=== PATIENT | male | born 1950 | race Caucasian/White ===

== ENCOUNTER 2022-11-07 07:31 | Outpatient (REF) | payer MEDICARE, SELFPAY ==
[2022-11-07 13:26] LABS: MANUAL DIFF FLAG NO
[2022-11-07 13:42] LABS: Basophils Percent Auto 1.2 % (0-2); Eosinophils Absolute Auto 0.1 X10*3/uL (0.0-0.4); Eosinophils Percent Auto 3.6 % (0-4); Hematocrit 40.6 % (42.0-52.0); Hemoglobin 12.9 g/dl (14.0-18.0); Imm Gran Abs Auto 0.01 X10*3/uL (0.00-0.03); Imm Gran Pct Auto 0.3 % (0.0-0.4); Lymphocytes Absolute Auto 1.2 X10*3/uL (1.2-4.9); Lymphocytes Percent Auto 34.2 % (20-40); Mean Corpuscular HGB Conc 31.8 g/dl (31.0-36.0); Mean Corpuscular Hemoglobin 29.5 pg (27.0-33.0); Mean Corpuscular Volume 92.7 fL (80.0-98.0); Mean Platelet Volume 9.6 fL (9.4-12.4); Monocytes Absolute Auto 0.5 X10*3/uL (0.1-1.2); Monocytes Percent Auto 14.6 % (2-11); Neutrophils Absolute Auto 1.6 x10*3/uL (2.0-8.3); Neutrophils Percent Auto 46.1 % (45-73); Platelet Count 314 X10*3/uL (160-400); Red Blood Count 4.38 X10*6/uL (4.60-5.80); Red Cell Distribution Width 16.1 % (11.0-16.0); White Blood Count 3.4 X10*3/uL (4.8-10.8)
[2022-11-07 14:31] LABS: Alanine Aminotransferase 23 U/L (0-40); Alkaline Phosphatase 77 U/L (39-117); Anion Gap 11 (12-20); Aspartate Amino Transferase 22 U/L (5-37); Bilirubin Total 0.3 mg/dL (0.0-1.0); Blood Urea Nitrogen 15 mg/dL (9-16); Calcium 9.7 mg/dL (8.4-10.2); Carbon Dioxide 28 mmol/L (22-29); Chloride 109 mmol/L (96-108); Cholesterol 233 mg/dL (<200); Estimated Glomerular Filt Rate > 60; Glucose Random 97 mg/dL (60-115); HDL Cholesterol 59 mg/dL (>40); LDL Cholesterol Calculated 152 mg/dL (<100); Potassium 4.1 mmol/L (3.3-5.1); Sodium 144 mmol/L (135-145); Triglycerides 113 mg/dL (<150)
[2022-11-07 14:34] LABS: Prostate Specific Antigen 4.57 ng/mL (<0.05-4.0)
== END 2022-11-07 07:32 | disposition home or self-care (01) ==
LOC: HO.MANLDS 07:31
PROVIDERS: Visit Provider Internal Medicine
DX: Z12.5 Encounter for screening for malignant neoplasm of prostate (principal); I10 Essential (primary) hypertension
CPT/HCPCS: 36415; 80053; 80061; 84153; 85025

== ENCOUNTER 2022-11-23 08:04 | Outpatient (REF) | payer MEDICARE, SELFPAY ==
[2022-11-23 13:32] LABS: MANUAL DIFF FLAG NO
[2022-11-23 13:49] LABS: Basophils Percent Auto 0.8 % (0-2); Eosinophils Absolute Auto 0.1 X10*3/uL (0.0-0.4); Hemoglobin 13.5 g/dl (14.0-18.0); Imm Gran Abs Auto 0.02 X10*3/uL (0.00-0.03); Imm Gran Pct Auto 0.4 % (0.0-0.4); Lymphocytes Absolute Auto 1.1 X10*3/uL (1.2-4.9); Lymphocytes Percent Auto 22.8 % (20-40); Mean Corpuscular HGB Conc 31.4 g/dl (31.0-36.0); Mean Corpuscular Hemoglobin 29.4 pg (27.0-33.0); Mean Corpuscular Volume 93.7 fL (80.0-98.0); Mean Platelet Volume 9.8 fL (9.4-12.4); Monocytes Absolute Auto 0.6 X10*3/uL (0.1-1.2); Monocytes Percent Auto 11.6 % (2-11); Neutrophils Absolute Auto 3.1 x10*3/uL (2.0-8.3); Neutrophils Percent Auto 62.4 % (45-73); Platelet Count 342 X10*3/uL (160-400); Red Blood Count 4.59 X10*6/uL (4.60-5.80); Red Cell Distribution Width 15.9 % (11.0-16.0)
[2022-11-23 14:25] LABS: Prostate Specific Antigen 5.58 ng/mL (<0.05-4.0)
[2022-11-23 14:39] LABS: Folate 15.5 ng/mL (> or = 4.0); Vitamin B12 745 pg/mL (200-900)
[2022-11-23 14:40] LABS: Ferritin 18 ng/mL (20-250); Iron 61 mcg/dL (45-160); Percent Iron Saturation 15 % (15-50); Total Iron Binding Capacity 400 mcg/dL (228-428); Unsaturated Iron Binding 339 ug/dL; Vitamin D 25-OH Total 35.4 ng/mL (>30)
== END 2022-11-23 08:05 | disposition home or self-care (01) ==
LOC: HO.MANLDS 08:04
PROVIDERS: Visit Provider Internal Medicine
DX: D64.9 Anemia, unspecified (principal); Z11.3 Encounter for screening for infections with a predominantly sexual mode of transmission; Z12.5 Encounter for screening for malignant neoplasm of prostate
CPT/HCPCS: 36415; 82306; 82607; 82728; 82746; 83540; 84153; 85025

== ENCOUNTER 2024-04-22 07:48 | Outpatient (REF) | payer MEDICARE, SELFPAY ==
--- OUTSIDE RECORDS SUMMARY | 2024-04-22 07:52 | XMS_ITS | Data Portability ---
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) [facility] MODERATE MUST MEET 2 OUT OF 3 ELEMENTS: PROBLEMS, DATA OR RISK ELEMENT 1: PROBLEMS ADDRESSED 1 OR MORE CHRONIC ILLNESS WITH EXACERBATION OR 2 OR MORE STABLE CHRONIC ILLNESSES OR 1 UNDIAGNOSED NEW PROBLEM OR 1 ACUTE ILLNESS W/SYMPTOMS OR 1 ACUTE COMPLICATED INJURY ELEMENT 2: DATA MUST MEET 1 OF 3 CATEGORIES CATEGORY 1: REVIEW OF PRIOR EXTERNAL NOTES, REVIEW OF RESULTS, ORDERING OF EACH TEST, ASSESSMENT REQUIRING INDEPENDENT HISTORIAN OR CATEGORY 2: INDEPENDENT INTERPRETATION OF TESTS BY ANOTHER PHYSICIAN OR SPECIALIST OR CATEGORY 3: DISCUSSION OF MGT OR TEST INTERPRETATION W/EXTERNAL PHYSICIAN OR SPECIALIST ELEMENT 3: RISK RISK OF COMPLICATIONS AND/OR MORBIDITY OR MORTALITY OF PATIENT MANAGEMENT PROVIDER MUST THOROUGHLY DOCUMENT EACH ELEMENT THAT IS COVERED Not available 06/14/2021 09:49:45 12/22/2021 12/22/2021 [id number] [place] [id number]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) [facility] MODERATE MUST MEET 2 OUT OF 3 ELEMENTS: PROBLEMS, DATA OR RISK ELEMENT 1: PROBLEMS ADDRESSED 1 OR MORE CHRONIC ILLNESS WITH EXACERBATION OR 2 OR MORE STABLE CHRONIC ILLNESSES OR 1 UNDIAGNOSED NEW PROBLEM OR 1 ACUTE ILLNESS W/SYMPTOMS OR 1 ACUTE COMPLICATED INJURY ELEMENT 2: DATA MUST MEET 1 OF 3 CATEGORIES CATEGORY 1: REVIEW OF PRIOR EXTERNAL NOTES, REVIEW OF RESULTS, ORDERING OF EACH TEST, ASSESSMENT REQUIRING INDEPENDENT HISTORIAN OR CATEGORY 2: INDEPENDENT INTERPRETATION OF TESTS BY ANOTHER PHYSICIAN OR SPECIALIST OR CATEGORY 3: DISCUSSION OF MGT OR TEST INTERPRETATION W/EXTERNAL PHYSICIAN OR SPECIALIST ELEMENT 3: RISK RISK OF COMPLICATIONS AND/OR MORBIDITY OR MORTALITY OF PATIENT MANAGEMENT PROVIDER MUST THOROUGHLY DOCUMENT EACH ELEMENT THAT IS COVERED Not available 12/22/2021 09:48:26 07/27/2022 07/27/2022 [id number] [place] [id number]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) [facility] MODERATE MUST MEET 2 OUT OF 3 ELEMENTS: PROBLEMS, DATA OR RISK ELEMENT 1: PROBLEMS ADDRESSED 1 OR MORE CHRONIC ILLNESS WITH EXACERBATION OR 2 OR MORE STABLE CHRONIC ILLNESSES OR 1 UNDIAGNOSED NEW PROBLEM OR 1 ACUTE ILLNESS W/SYMPTOMS OR 1 ACUTE COMPLICATED INJURY ELEMENT 2: DATA MUST MEET 1 OF 3 CATEGORIES CATEGORY 1: REVIEW OF PRIOR EXTERNAL NOTES, REVIEW OF RESULTS, ORDERING OF EACH TEST, ASSESSMENT REQUIRING INDEPENDENT HISTORIAN OR CATEGORY 2: INDEPENDENT INTERPRETATION OF TESTS BY ANOTHER PHYSICIAN OR SPECIALIST OR CATEGORY 3: DISCUSSION OF MGT OR TEST INTERPRETATION W/EXTERNAL PHYSICIAN OR SPECIALIST ELEMENT 3: RISK RISK OF COMPLICATIONS AND/OR MORBIDITY OR MORTALITY OF PATIENT MANAGEMENT PROVIDER MUST THOROUGHLY DOCUMENT EACH ELEMENT THAT IS COVERED Not available 07/27/2022 12:44:29 01/25/2023 01/25/2023 [id number] [place] [id number]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 REVIEW OF PRIOR EXTERNAL NOTES/RESULTS, ORDERING OF TEST(S) CATEGORY 2. ASSESSMENT REQUIRING INDEPENDENT HISTORIAN(S) INCLUDE WHO THE HISTORIAN IS AND RELATION TO PT AND WHY PT IS UNABLE TO GIVE COMPLETE HISTORY ELEMENT 3: RISK (LOW) RISK OF COMPLICATIONS AND/OR MORBIDITY OR MORTALITY OF PATIENT MANAGEMENT PROVIDER MUST THOROUGHLY DOCUMENT ALL OF THE ELEMENTS COVERED Not available 01/25/2023 11:39:50 04/20/2024 04/20/2024 mwv Not available 04/11 13:43:31 Plan of Treatment Reminders Order Date Submit Date Provider Last Modified By Organization Details Last Modified Time Details Appointments None recorded. Lab CMP, serum or plasma 2022 023 [facility] [place], [address], 11:46:39 PSA, serum or plasma 2022 023 [facility], [place], [address], 3 11:46:39 lipid panel, blood 2022 023 [facility], [place], [address], 3 11:46:39 CBC 2022 023 [facility], [place], [address], 3 11:46:39 CMP, serum or plasma 2024 025 [facility], [place], [address], 5 13:46:22 PSA, serum or plasma 2024 025 [facility], [place], [address], 5 13:46:22 lipid panel, blood 2024 025 [facility], [place], [address], 5 13:46:22 CBC w/ auto diff 2024 025 [facility], [place], [address], 5 13:46:23 ferritin, serum or plasma 2024 025 [facility], [place], [address], 5 13:46:22 vitamin B12, serum 2024 025 [facility], [place], [address], 5 13:46:23 Referral None recorded. Procedures None recorded. Surgeries None recorded. Imaging CT, head, w/o contrast 2024 025 [facility], [address] [place], [address], 10:14:17 Medication Orders albuterol sulfate HFA 90 mcg/actuat ion aerosol inhaler 2021 022 [facility] [id number], [address], [place], [id number], 09:52:02 Patient TargetsNo targets recorded. Patient Instructions Encounter Date Encounter Id Patient Instructions Last Modified By Organization Details Last Modified Time 06/14/2021 [id number] pulse oximetry* KEISHA Not available 06/14/2021 11:10:09 high blood pressure: care instructions Not available 06/14/2021 09:53:33 learning about high blood pressure Not available 06/14/2021 09:53:33 12/22/2021 [id number] high blood pressure: care instructions Not available 12/22/2021 09:51:27 learning about high blood pressure Not available 12/22/2021 09:51:27 07/27/2022 [id number] pulse oximetry* KEISHA Not available 07/27/2022 12:27:37 controlling your asthma: care instructions rtryba Not available 07/27/2022 12:14:59 learning about asthma rtryba Not available 07/27/2022 12:14:59 04/20/2024 [id number] learning about asthma Not available 04/20/2024 13:44:58 pulse oximetry* Not available 04/20/2024 13:44:58 high blood pressure: care instructions Not available 04/20/2024 13:44:58 learning about high blood pressure Not available 04/20/2024 13:44:58 anemia: care instructions Not available 04/20/2024 13:44:58 Reason for Referral None Reported. Results Created Date Observation Date Name Description Value Unit Range Abnormal Flag Note LastModifiedBy Organization Detail LastModifiedTime 07/28/19 23 07/27/2022 pulse oxime try* Result 98 Not Available [facility] [address] [facility], [place], [address], 07/24/2022 11:43:12 04/20/19 25 04/20/2024 pulse oxime try* Result 98 Not Available [facility] [address] [facility] [address], [place], [address], 04/15/2024 14:01:35 Result Notes None recorded. 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 353047818 Active 2018 Not Available [facility] 13:58:29 Exercise- induced asthma 61592140 Active 2018 Not Available [facility] 13:58:29 Stress 53025121 Active 2019 Not Available [facility] 13:58:29 Family history of Hypertens ion 273197607 Active 2021 Sina Robertson, [address] [facility], [place], [address], [facility] 2 09:42:38 Viral hepatitis C 91545948 Active 2017 Not Available [facility] 13:58:29 Type B viral hepatitis 74371325 Active 2017 Not Available [facility] 13:58:29 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 92644969 Active 2017 Not Available [facility] 13:58:29 History of tobacco use 605923384031 3 Active 2017 Not Available [facility] 13:58:29 Exposure to asbestos Active 2017 Not Available [facility] 13:58:29 Essential hypertens ion 48372109 Active 2017 Not Available [facility] 10/05/202 1 13:58:29 Anxiety 87170741 Active 2021 JEAN-PIERRE SAENZ [address] [place], [address], [facility] Internal [facility] 2 08:45:19 Asthma 394257836 Active 2022 Sina Robertson, DO [address] [place] [address], [address], [facility] 3 12:45:36 Impacted cerumen 75316045 Active 2022 Sina Robertson, DO [address] [place] [address], [address], [facility] 3 12:45:57 Impacted cerumen 81026278 Active 2022 Sina Robertson DO [address] [place] [address], [address], [facility] 3 12:46:03 Altered bowel function 82565924 Active 2022 Sina Robertson, DO [address] [place] [address], [address], [facility] 3 12:49:09 Anemia 935042765 Active 2022 Sina Robertson DO [address] [place] [address], [address], [facility] 3 16:32:02 Chronic post-trau matic headache 882327264 Active 2024 Sina Robertson, DO [address] [place] [address], [address], [facility] 5 13:46:59 Problem Notes None recorded. Medical Equipment None Reported. Allergies Allergen ID Allergen Name Allergen Category Reaction Reaction Severity Criticality Documentation Date Start Date Code Code System Note Provider Name and Address Organization Details Recorded Time 588 pantopraz ole medicatio n Not available Not available Not available 05/29/2017 55948 [facility] 10:11:42 Medications Name Sig Start Date Stop Date Status Note LastModified by Organization Details LastModified Time amlodipine besylate 10 mg tabs active Not Available Not Available Not Available citalopram hydrobromid e 10 mg tabs active Not Available Not Available Not Available prednisone 10 mg tablet Take 4 tablets every day by oral route for 10 days. 05/19 completed Not Available Not Available Not Available ofloxacin 0.3 % eye drops INSTILL 1 DROP IN LEFT EYE FOUR TIMES DAILY 06/14 completed Not Available Not Available Not Available citalopram 10 mg tablet TAKE 1 TABLET BY MOUTH ONCE DAILY active Not Available Not Available No t Available amlodipine 5 mg tablet Take 1 tablet every day by oral route. 11/05 completed Not Available Not Available Not Available tamsulosin 0.4 mg capsule Take 1 capsule every day by oral route for 30 days. 04/03 completed Not Available Not Available Not Available amlodipine 10 mg tablet TAKE 1 TABLET BY MOUTH ONCE DAILY active Not Available Not Available No t Available albuterol sulfate HFA 90 mcg/actuati on aerosol inhaler INHALE 2 PUFFS BY MOUTH EVERY 4 HOURS active Not Available Not Available No t Available ketoconazol e 2 % topical cream APPLY TO THE AFFECTED AREA(S) BY TOPICAL ROUTE ONCE DAILY 04/25 completed Not Available Not Available Not Available Pneumovax-2 3 25 mcg/0.5 mL injection syringe 11/10 completed Not Available Not Available Not Available duloxetine 30 mg capsule,del ayed release TAKE 1 CAPSULE BY MOUTH EVERY DAY 11/15 completed Not Available Not Available Not Available Boostrix Tdap 2.5 Lf unit-8 mcg-5 Lf/0.5 mL intramuscul ar syringe 11/10 completed Not Available Not Available Not Available Prevnar 13 (PF) 0.5 mL intramuscul ar syringe 11/10 completed Not Available Not Available Not Available Shingrix (PF) 50 mcg/0.5 mL intramuscul ar suspension, kit 11/10 completed Not Available Not Available Not Available Fluad 2018- 65yr up(PF)45 mcg(15 mcgx3)/0.5 mL intramuscul ar syringe 11/10 completed Not Available Not Available Not Available Vitals Date Recorded Body height Body mass index (BMI) Body weight Heart rate Oxygen saturation Oxygen saturation in Arterial blood by Pulse oximetry Systolic blood pressure Diastolic blood pressure Provider Name and Address Organization Details Last Updated DateTime 2 174.63 cm 29.2 kg/m2 83022.5 4 g 60 /min 98 % 98 % 140 mm[Hg] 76 mm[Hg] Sina Robertson, DO [address] [place], [address], [facility] 2 09:29:33 Date Recorded Body height Body mass index (BMI) Body weight Heart rate Oxygen saturation Oxygen saturation in Arterial blood by Pulse oximetry Systolic blood pressure Diastolic blood pressure Provider Name and Address Organization Details Last Updated DateTime 2 174.63 cm 29.4 kg/m2 37030.2 1 g 64 /min 98 % 98 % 142 mm[Hg] 84 mm[Hg] Christine Ceciliawill [facility] 2 09:28:55 Date Recorded Body height Body mass index (BMI) Body weight Heart rate Oxygen saturation Oxygen saturation in Arterial blood by Pulse oximetry Systolic blood pressure Diastolic blood pressure Provider Name and Address Organization Details Last Updated DateTime 3 177.8 cm 27.4 kg/m2 94504.1 4 g 98 /min 72 % 72 % 120 mm[Hg] 80 mm[Hg] Nini Gaviria [facility] 3 12:20:51 Date Recorded Body height Body mass index (BMI) Body weight Heart rate Oxygen saturation Oxygen saturation in Arterial blood by Pulse oximetry Systolic blood pressure Diastolic blood pressure Provider Name and Address Organization Details Last Updated DateTime 5 177.8 cm 29.7 kg/m2 96081.6 2 g 62 /min 98 % 98 % 138 mm[Hg] 80 mm[Hg] Rodolfo Freeman [facility] 5 13:29:18 Social History Question Answer Notes LastModified by Organizat ion Details LastModified Time Tobacco Smoking Status Former Smoker 35 years Not Available [facility] 01/12/2020 03:36:24 What Is Your Level Of Alcohol Consumption? Occasional [id number] Information not available 01/12/2020 Are You Blind Or Do You Have Difficulty Seeing? No [id number] Information not available 01/12/2020 What Is Your Level Of Caffeine Consumption? Moderate [id number] Information not available 01/12/2020 How Much Tobacco Do You Chew? None [id number] Information not available 01/12/2020 Are You Currently Employed? No [id number] Information not available 01/12/2020 Are You Deaf Or Do You Have Serious Difficulty Hearing? No [id number] Information not available 01/12/2020 What Type Of Diet Are You Following? VEGETARIAN [id number] Information not available 01/12/2020 What Was The Date Of Your Most Recent Tobacco Screening? 07/27/2022 [email or web address] Information not available 01/25/2023 Do You Or Have You Ever Used Any Other Forms Of Tobacco Or Nicotine? No [email or web address] Information not available 01/25/2023 Sex: Unknown Functional Status Question Answer Note LastModified by Organization D etails LastModified Time Are you able to care for yourself? Yes [id number] Information n ot available 01/12/2020 Mental Status None recorded. Family History Nothing Reported. Medical History Condition Response Coronary Artery Disease N Other N Gout N Blood Diseases N Kidney Stones N Breast Cancer N Blood Transfusion N Lung Disease N Depression N COPD N Defects or Inherited Disease N Anxiety Disorder N Muscle, Joint, or Bone Problems N Obesity N Vision or Eye Problems N Arthritis N Infertility N Polyps N Mental Disorder N Cancer N Stroke N Varicosities N Endometriosis N Bladder or Kidney Problems N High Cholesterol N Liver Disease N Fibromyalgia N Headaches N Kidney Disease N Allergies/Hayfever N Heart Problems N Hospitalizations N Thyroid Problems N GI Problems N Eating Disorder N Skin Problems N Anemia N MRSA exposure N Constipation N Mental Illness N Diabetes N Ovarian Cancer N Seizures/Epilepsy N Tuberculosis N Congestive Heart Failure (CHF) N Eczema N Abuse/Domestic Violence N Diverticulitis N Asthma N Reflux/GERD N Hepatitis N Heart Disease N Pulmonary Embolism N Hypertension N Chicken Pox N Autism Spectrum Disorder (ASD) N Osteoporosis N Immunizations Vaccine Type Date Status Note Provider Nam e and Address Organization Details Recorded Time COVID-19, mRNA, LNP-S, PF, 30 mcg/0.3 mL dose 06/03/19 21 completed Liliam GenNAVIN [facility] 07/27/2022 12:09:41 Influenza, split virus, quadrivalent, preservative 12/14/19 21 completed [facility] 12:09:40 COVID-19, mRNA, LNP-S, PF, 100 mcg/0.5mL dose or 50 mcg/0.25mL dose 01/04/20 21 completed Liliam Gencarelle null, [facility] 07/27/2022 12:09:41 COVID-19, mRNA, LNP-S, PF, 100 mcg/0.5mL dose or 50 mcg/0.25mL dose 07/06/19 22 completed [facility] 07/27/2022 12:09:41 Influenza, high-dose, quadrivalent, PF 12/17/19 22 completed [facility] 07/27/2022 12:09:40 COVID-19, mRNA, LNP-S, PF, 30 mcg/0.3 mL dose 12/17/19 22 completed Liliam Gencarelle [facility] 07/27/2022 12:09:41 influenza, unspecified formulation 12/04/19 23 completed Rashaad Robertson [facility] 12/03/2022 10:30:22 Influenza, [place] 11/17/19 24 completed Sina Robertson [address], [address], [facility] 11/17/2023 16:50:48 SARS-COV-2 (COVID-19) vaccine, UNSPECIFIED 11/17/19 24 completed Sina Robertson DO [address] [place] [address], [address], [facility] 11/17/2023 16:51:49 Influenza, split virus, quadrivalent, preservative 12/24/19 18 completed [facility] 07/27/2022 12:09:40 Tdap 09/26/19 19 completed [facility] 09/26/2018 08:18:28 Pneumococcal conjugate PCV 13 09/26/19 19 completed Liliam Mcduffiecarelle [facility] 07/27/2022 12:09:41 Influenza, split virus, quadrivalent, preservative 11/29/19 19 completed Liliam Gencarelle null, [facility] 07/27/2022 12:09:40 pneumococcal polysaccharide PPV23 10/15/19 20 completed Liliam Gencarelle null, [facility] 07/27/2022 12:09:41 zoster recombinant 10/15/19 20 completed Liliam Gencarelle null, [facility] 07/27/2022 12:09:40 Influenza, split virus, quadrivalent, preservative 12/21/19 20 completed Liliam Gencarelle null, [facility] 07/27/2022 12:09:40 zoster, unspecified formulation 12/21/19 20 completed Liliam Gencarelle null, [facility] 07/27/2022 12:09:40 COVID-19, mRNA, LNP-S, PF, 100 mcg/0.5mL dose or 50 mcg/0.25mL dose 05/05/19 21 completed Liliam Gencarelle null, [facility] 07/27/2022 12:09:41 Past Encounters Encounter ID Performer Location Encounter Start Date Encounter Closed Date Diagnosis/Indication Diagnosis SNOMED-CT Code Diagnosis ICD10 Code Diagnosis Note [id number] Sina Robertson DO [facility] [address] [place] [address],[place] [address] 09/23/2017 15:25:09 09/23/2017 16:37:32 Essential hypertension 01792955 I10 doing well great bp still biking thinking on retiring soon Degenerati on of thoracic intervertebral disc 61389798 M51.34 back is stable for most part but with any lifting has signif discomfort can anticipate it [id number] Nadege Matthew NP, S [facility] [address] [place] [address],[place] [address] 11/05/2017 15:54:28 11/06/2017 08:56:21 Thyroid nodule 488000653 E04.1 Fatigue 44946962 R53.83 Essential hypertension 06155967 I10 stable [id number] Sina Robertson DO [facility] [address] [facility] [address] [address] 03/26/2018 09:17:32 03/26/2018 09:59:55 Essential hypertension 55766817 I10 doing well bp sl elevated but great at home 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 left clavicle snowboardi ng but this is healing Generalize d skin eruption caused by drug and medicament 576659272 L27.0 prob secondary to new amlodipine he will stop this and we will give him pred taper [id number] Sina Robertson [facility] [address] [facility] [address] 05/05/2018 12:07:02 05/05/2018 12:33:58 Generalized skin eruption caused by drug and medicament 821321508 L27.0 marked improvemen t and all but resolved will see what happens off the pred in meantime molly keep him off the bp med (amlodipin e) and will see how his bp stays Essential hypertension 48051832 I10 as above cont to hold amlodipine and pt will check his bp multiple times during week will rechk in 1-2 mo [id number] Nadege Matthew NP, S [facility] [address] [facility],[place] [address] 05/19/2018 15:38:43 05/20/2018 08:25:38 Pruritic rash 01034360 L28.2 [id number] Sina Robertson [facility] [address] [facility] [address] [address] 06/04/2018 13:31:26 06/04/2018 15:53:46 Essential hypertension 66858695 I10 as above cont to hold amlodipine and pt will check his bp multiple times during week will rechk in 1-2 mo Pruritic rash 99173005 L 28.2 diffuse and only partly responsive to pred present since february and not improving see photos included Exercise-i nduced asthma 96229851 J45.990 has noticed onset agian this spring [id number] Sina Robertson [facility] [address] [facility],[place] [address] 09/24/2018 08:49:10 09/24/2018 13:39:41 Essential hypertension 13839519 I10 bp has been stable and is doing well denies any issues with med Exercise-i nduced asthma 54372647 J45.990 has been more stable since the spring not req to use inhaler Benign pro static hyperplasia 015383689 N40.1 [id number] Sina Robertson [facility] [address] [facility],[place] [address] 04/03/2019 14:48:31 04/03/2019 15:16:20 Essential hypertension 96181959 I10 bp has been stable and is doing well denies any issues with med Stress 56542050 Z73.3 anxiety is high and this contribute s to him feeling well [id number] Sina Robertson DO [facility] [address] [facility],[place] [address] 05/08/2019 14:38:23 05/08/2019 15:12:34 Essential hypertension 27593451 I10 bp has been stable and is doing well denies any issues with med Active or passive immunization 270537199 Z23 Exercise-i nduced asthma 85060638 J45.990 has been more stable since the spring not req to use inhaler [id number] Sina Robertson [facility] [address] [facility],[place] [address] 11/11/2019 13:27:26 11/11/2019 15:28:24 Essential hypertension 55369152 I10 bp has been stable and is doing well denies any issues with med feeling well and we will cont to use this same regimen Exercise-i nduced asthma 12769032 J45.990 has been more stable since the spring not req to use inhaler Degenerati on of thoracic intervertebral disc 84104344 M51.34 back is stable for most part but with any lifting has signif discomfort can anticipate it Drug of abuse screen 897 83808 Z02.83 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 [id number] Sina Robertson [facility] [address] [facility],[place] [address] 05/11/2020 09:09:52 05/11/2020 10:41:52 Essential hypertension 93874760 I10 bp has been stable and is doing well denies any issues with med feeling well and we will cont to use this same regimen Exercise-i nduced asthma 57463443 J45.990 has been more stable since the spring not req to use inhaler Exposure to asbestos 699 951745 Z77.090 here for chk will have him get another cxr [id number] Sina [facility] Internal Medicine [address] [facility],[place] [address] 09/30/2020 14:46:45 09/30/2020 15:35:20 Essential hypertension 06157984 I10 bp has been stable and is doing well denies any issues with med feeling well and we will cont to use this same regimen Stress 84494743 Z73.3 anxiety is high and this contribute s to him feeling well we will stop the citalopram and try duloxetine [id number] Sina Robertson [facility] Internal Medicine [address] [facility],[place] [address] 06/14/2021 09:21:46 06/14/2021 11:15:12 Essential hypertension 37027593 I10 bp has been stable and is doing well denies any issues with med feeling well and we will cont to use this same regimen he is having dry mouth so he will hold the amlodipine for several days and see if this is the culprit and if so will call me on saturday we will consider change to alternativ e Exercise-i nduced asthma 70598394 J45.990 has been more stable since the spring not req to use inhaler Stress 10743503 Z73.3 doing ok we will cont the citalopram [id number] Sina Robertson [facility] Internal Medicine [address] [facility],[place] [address] 12/22/2021 09:23:31 12/22/2021 11:18:29 Essential hypertension 46291686 I10 bp has been stable and is doing well denies any issues with med feeling well and we will cont to use this same regimen he is having dry mouth so he will hold the amlodipine for several days and see if this is the culprit and if so will call me on saturday we will consider change to alternativ e Stress 75195090 Z73.3 doing ok we will cont the citalopram Degenerati on of thoracic intervertebral disc 85327319 M51.34 back is stable for most part but with any lifting has signif discomfort can anticipate it Exercise-i nduced asthma 71161384 J45.990 has been more stable since the spring not req to use inhaler [id number] Sina Castle Ailyn [facility] Internal Medicine [address] [facility] [place] [place] 7 07/27/2022 12:09:32 07/27/2022 13:59:33 Asthma 767293841 J45.909 relates he is rarely bothered by the asthma not using inhaler at all Essential hypertension 37322872 I10 and again: bp has been stable and is doing well denies any issues with med feeling well and we will cont to use this same regimen Impacted cerumen 7716080 6 H61.21 he will irrigate th ear and let me know not compldtely blocked so we will cont to follow if not improved he will need an audiogram Altered pedro wel function 90566554 R19.4 we will follow if it recurs pt will let us know [id number] Sina Jadejorge alberto [facility] Internal Medicine [address] [facility], [address] [facility] [place] 7 01/25/2023 08:20:46 01/25/2023 14:26:08 Asthma 836279821 J45.909 relates he is rarely bothered by the asthma not using inhaler at all Essential hypertension 45884511 I10 and again: bp has been stable and is doing well denies any issues with med feeling well and we will cont to use this same regimen Anemia 350141706 D64.9 [id number] Sina Robertson DO [facility] Internal Medicine [address] [facility] [address],[place] [address] 04/20/2024 13:19:04 04/20/2024 13:52:49 Asthma 624716413 J45.909 relates he is rarely bothered by the asthma not using inhaler at all Anxiety 65201417 F41.1 stable but maybe a panic attack Anemia 152171569 D64.9 will need cbc Essential hypertension 17448971 I10 and again: bp has been stable and is doing well denies any issues with med feeling well and we will cont to use this same regimen Chronic post-traumatic headache 684907114 G44.329 Health Concerns Section Related Observation LastModified by Organization Detai ls LastModified Time None Recorded Concern Status LastModified by Organization Details LastModified Time None Recorded Advance Directives Directive None Recorded Payers Encounter Date Sequence Insurance Name Policy Number Policy Peters Covered Member ID Peters Member ID Guarantor Name 06/14/2021 1 [facility]UE (MEDICARE REPLACEMENT PPO) [id number] Sixto A Cernak [id number] Sixto Cernak 12/22/2021 1 [facility] (MEDICARE REPLACEMENT PPO) [id number] Sixto A Cernak [id number] Sixto Cernak 07/27/2022 1 [facility] (MEDICARE REPLACEMENT PPO) [id number] Sixto A Cernak [id number] 90 Sixto Cernak 01/25/2023 1 [facility] (MEDICARE REPLACEMENT PPO) [id number] Sixto A Cernak [id number] 90 Sixto Cernak 04/20/2024 1 [facility]UE (MEDICARE REPLACEMENT PPO) [id number] Sixto A Cernak [id number] Sixto Cernak Notes Date Note Type Note Provider Name and Address Organization Details Recorded Time 2 text/htm l Hypertension F/UReported bypatient.Medications:marlyn lomeli medications as directed; no side effects from medication Lifestyle:regular exercise; limiting/avoiding salt; compliant with low salt diet Associated Symptoms:no dizziness; no lightheadedness; no chest pain; no shortness of breath; no palpitations; no edema; no calf pain with exertion; no headacheNotes:The patient denies little pleasure in doing thing or things the find enjoyable, feeling depressed, difficulties sleeping, feeling tired or having little energy, change in appetite, feeling guilty, overwhelmed or unmotivated. The patient denies suicidal ideation, thoughts of hurting themselves or others. Their mood is appropriate, they show good judgement and clear understanding of the conversation. They are orientated to time, place and person. They are not expressing any concerning thoughts or actions that would need further investigation and treatment for mental health. here for catiand is doing okstates no major issues except for dry mouthrelates he stopped the citalopram on saturday but did not have any issue Sina Robertson DO [address] [place] [address], [phone], [facility] Internal Medicine 06/14/2021 09:53:57 2 text/htm l Hypertension F/UReported bypatient.Medications:marlyn lomeli medications as directed; no side effects from medication Lifestyle:regular exercise; limiting/avoiding salt; compliant with low salt diet Associated Symptoms:no dizziness; no lightheadedness; no chest pain; no shortness of breath; no palpitations; no edema; no calf pain with exertion; no headache here for rechk and is still very avtive biking every daystates feels goodno major prob no cp nosobnot using inhaler Sina Robertson DO [address] [place], [address], [facility] Internal Medicine 12/22/2021 09:52:25 3 text/htm l relates he is feeling wellstates that he has been having some decreased hearing in right ear over the last monthsalso had very light bm several months ago happened for about a week then has cleared Sina Robertson DO [address] [place], [address], [facility] Internal Medicine 07/27/2022 12:50:10 3 text/htm l patient is evaluated via tele/video assessment per patient consent during current pandemicPatient is a _72_ year old {{male* female}} with a history of hypertension. Patient had been stable on medication until recently. Patient returns today for further evaluation. Patient denies lightheadedness or dizziness. doing wellfeels welldid get the rsv and flu Sina Robertson DO [address] [place] [address], [phone], [facility] Internal Medicine 01/25/2023 11:40:08 3 text/htm l Care Management - HypertensionReported bypatient.Self Care:not under emotional stress Severity:symptoms are improving; does not interfere with daily activities Associated Symptoms:no dizziness; no lightheadedness; no chest pain; no shortness of breath; no palpitations; no edema; no calf muscle cramps; no blurred vision; no confusion; no headaches; no fatigue Sina Robertson DO [address] [place] [address], [phone], [facility] Internal Medicine 01/25/2023 11:40:08 5 text/htm l relates that he has been having odd headaches with assoc dizziness and feeling fuzzy afterwards for a couple weeks states these headaches are rare had one last month and doesnt remember the time prior . states the headache is disorienting and dizzy Sina Robertson DO [address] [place] [address], [phone], [facility] Internal Medicine 04/20/2024 13:50:46
--- OUTSIDE RECORDS SUMMARY | 2024-04-22 07:52 | XMS_ITS | Continuity of Care Document ---
Author Organization [facility], [facility] Address [address] [facility] [place] [address] [place] [address] Assessment Encounter Date Assessment Date Assessment LastModified by Organization Details LastModified Time 04/20/2024 04/20/2024 adi Not available 04/11 13:43:31 Plan of Treatment Reminders Order Date Submit Date Provider Last Modified By Organization Details Last Modified Time Details Appointments None recorded. Lab CMP, serum or plasma 2024 025 [facility], [place], [address], 5 13:46:22 PSA, serum or plasma 2024 025 [facility], [place], [address], 5 13:46:22 lipid panel, blood 2024 025 [facility], [place], [address], 5 13:46:22 CBC w/ auto diff 2024 025 [facility], [place], [address], 5 13:46:23 ferritin, serum or plasma 2024 025 [facility], [place], [address], 13:46:22 vitamin B12, serum 2024 025 [facility], [place], [address], 13:46:23 Referral None recorded. Procedures None recorded. Surgeries None recorded. Imaging CT, head, w/o contrast 2024 025 [facility] Central Scheduling, [address] [place] [address], [address], 10:14:17 Medication Orders None recorded. Patient TargetsNo targets recorded. Patient Instructions Encounter Date Encounter Id Patient Instructions Last Modified By Organization Details Last Modified Time 04/20/2024 [id number] learning about asthma Not available 04/20/2024 13:44:58 pulse oximetry* Not available 04/20/2024 13:44:58 high blood pressure: care instructions Not available 04/20/2024 13:44:58 learning about high blood pressure Not available 04/20/2024 13:44:58 anemia: care instructions Not available 04/20/2024 13:44:58 Reason for Referral None Reported. Results Created Date Observation Date Name Description Value Unit Range Abnormal Flag Note LastModifiedBy Organization Detail LastModifiedTime 04/20/1904/20/2024 pulse oxime try* Result 98 Not Available [facility] Internal Medicine [address] [place] [address] [address], [place], [address], 04/15/2024 14:01:35 Result Notes None recorded. 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 717069943 Active 2018 Not Available [facility] 13:58:29 Exercise- induced asthma 74828108 Active 2018 Not Available [facility] 13:58:29 Stress 42540017 Active 2019 Not Available [facility] 10/05/202 1 13:58:29 Family history of Hypertens ion 387422618 Active 2021 Sina Robertson, DO [address] [place] [address], [address], [facility] Medicine 2 09:42:38 Viral hepatitis C 68236424 Active 2017 Not Available [facility] 1 13:58:29 Type B viral hepatitis 50648449 Active 2017 Not Available [facility] 1 13:58:29 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 67380546 Active 2017 Not Available [facility] 1 13:58:29 History of tobacco use 020825636590 3 Active 2017 Not Available [facility] 1 13:58:29 Exposure to asbestos Active 2017 Not Available [facility] 1 13:58:29 Essential hypertens ion 35464373 Active 2017 Not Available [facility] 1 13:58:29 Anxiety 99730194 Active 2021 JEAN-PIERRE SAENZ [address] [place] [address], [address], [facility] 2 08:45:19 Asthma 178830888 Active 2022 Sina Robertson DO [address] [place] [address], [address], [facility] 3 12:45:36 Impacted cerumen 13515666 Active 2022 Sina Robertson, DO [address] [place] [address], [address], [facility] 3 12:45:57 Impacted cerumen 58524871 Active 2022 Sina Robertson DO [address] [place] [address], [address], [facility] 3 12:46:03 Altered bowel function 85081284 Active 2022 Sina Robertson DO [address] [place] [address], [address], [facility] 3 12:49:09 Anemia 423330698 Active 2022 Sina Robertson, [address] [place], [address], [facility] 3 16:32:02 Chronic post-trau matic headache 883037105 Active 2024 Sina Robertson, [address] [place], [address], [facility] 5 13:46:59 Problem Notes None recorded. Medical Equipment None Reported. Allergies Allergen ID Allergen Name Allergen Category Reaction Reaction Severity Criticality Documentation Date Start Date Code Code System Note Provider Name and Address Organization Details Recorded Time 588 pantopraz ole medicatio n Not available Not available Not available 05/29/2017 98083 RxNorm Chaya Mcclellan [facility] 8 10:11:42 Medications Name Sig Start [...] Not Available Not Available Not Available Fluad 65yr up(PF)45 mcg(15 mcgx3)/0.5 mL intramuscul ar syringe 11/10 completed Not Available Not Available Not Available Vitals Date Recorded Body height Body mass index (BMI) Body weight Heart rate Oxygen saturation Oxygen saturation in Arterial blood by Pulse oximetry Systolic blood pressure Diastolic blood pressure Provider Name and Address Organization Details Last Updated DateTime 5 177.8 cm 29.7 kg/m2 42201.6 2 g 62 /min 98 % 98 % 138 mm[Hg] 80 mm[Hg] [facility] 5 13:29:18 Social History Question Answer Notes LastModified by Organizat ion Details LastModified Time Tobacco Smoking Status Former Smoker 35 years Not Available [facility] 01/12/2020 03:36:24 What Is Your Level Of Alcohol Consumption? Occasional [id number] Information not available 01/12/2020 Are You Blind Or Do You Have Difficulty Seeing? No [id number] Information not available 01/12/2020 What Is Your Level Of Caffeine Consumption? Moderate [id number] Information not available 01/12/2020 How Much Tobacco Do You Chew? None [id number] Information not available 01/12/2020 Are You Currently Employed? No [id number] Information not available 01/12/2020 Are You Deaf Or Do You Have Serious Difficulty Hearing? No [id number] Information not available 01/12/2020 What Type Of Diet Are You Following? VEGETARIAN [id number] Information not available 01/12/2020 What Was The Date Of Your Most Recent Tobacco Screening? 07/27/2022 [email or web address] Information not available 01/25/2023 Do You Or Have You Ever Used Any Other Forms Of Tobacco Or Nicotine? No [id number] Information not available 01/25/2023 Sex: Unknown Functional Status Question Answer Note LastModified by Organization D etails LastModified Time Are you able to care for yourself? Yes [id number] Information n ot available 01/12/2020 Mental Status None recorded. Family History Nothing Reported. Medical History Condition Response Coronary Artery Disease N Gout N Other N Kidney Stones N Blood Diseases N Blood Transfusion N Breast Cancer N Lung Disease N Depression N COPD [...] mcg/0.3 mL dose 06/03/19 21 completed Liliam Gencarelle joey [facility] Internal [facility] 07/27/2022 12:09:41 Influenza, split virus, quadrivalent, preservative 12/14/19 21 completed Liliam Gencarelle joey [facility] 07/27/2022 12:09:40 COVID-19, mRNA, LNP-S, PF, 100 mcg/0.5mL dose or 50 mcg/0.25mL dose 01/04/20 21 completed Liliam Gencarelle joey [facility] 07/27/2022 12:09:41 COVID-19, mRNA, LNP-S, PF, 100 mcg/0.5mL dose or 50 mcg/0.25mL dose 07/06/19 22 completed Liliam Gencarelle null, [facility] 07/27/2022 12:09:41 Influenza, high-dose, quadrivalent, PF 12/17/19 22 [facility] 12:09:40 COVID-19, mRNA, LNP-S, PF, 30 mcg/0.3 mL dose 12/17/19 22 completed Liliam Gencarelle null, [facility] 07/27/2022 12:09:41 influenza, unspecified formulation 12/04/19 23 completed Rashaad Robertson [facility] 12/03/2022 10:30:22 Influenza, [place] 11/17/19 24 completed Sina Robertson [address], [address], [facility] 11/17/2023 16:50:48 SARS-COV-2 (COVID-19) vaccine, UNSPECIFIED 11/17/19 24 completed Sina Robertson DO [address] [place] [address], [address], [facility] 11/17/2023 16:51:49 Influenza, split virus, quadrivalent, preservative 12/24/19 18 completed Liliam Gencarelle [facility] 07/27/2022 12:09:40 Tdap 09/26/19 19 completed Chaya Mcclellan [facility] 09/26/2018 08:18:28 Pneumococcal conjugate PCV 13 09/26/19 19 completed Liliam Gencarelle [facility] 07/27/2022 12:09:41 Influenza, split virus, quadrivalent, preservative 11/29/19 19 completed Liliam Gencarelle [facility] 07/27/2022 12:09:40 pneumococcal polysaccharide PPV23 10/15/19 20 [facility] 12:09:41 zoster recombinant 10/15/19 20 completed Liliam Gencarelle joey [facility] 07/27/2022 12:09:40 Influenza, split virus, quadrivalent, preservative 12/21/19 20 completed Liliam Gencarelle joey [facility] 07/27/2022 12:09:40 zoster, unspecified formulation 12/21/19 20 completed Liliam Gencarelle joey [facility] 07/27/2022 12:09:40 COVID-19, mRNA, LNP-S, PF, 100 mcg/0.5mL dose or 50 mcg/0.25mL dose 05/05/19 21 completed Liliam Gencarelle joey [facility] 07/27/2022 12:09:41 Past Encounters Encounter ID Performer Location Encounter Start Date Encounter Closed Date Diagnosis/Indication Diagnosis SNOMED-CT Code Diagnosis ICD10 Code Diagnosis Note [id number] Sina Robertson [facility] Internal Medicine [address] [facility],[place] [address] 04/20/2024 13:19:04 04/20/2024 13:52:49 Asthma 565389058 J45.909 relates he is rarely bothered by the asthma not using inhaler at all Anxiety 26177012 F41.1 stable but maybe a panic attack Anemia 083954239 D64.9 will need cbc Essential hypertension 08076546 I10 and again: bp has been stable and is doing well denies any issues with med feeling well and we will cont to use this same regimen Chronic post-traumatic headache 433851150 G44.329 Health Concerns Section Related Observation LastModified by Organization Detai ls LastModified Time None Recorded Concern Status LastModified by Organization Details LastModified Time None Recorded Payers Encounter Date Sequence Insurance Name Policy Number Policy Peters Covered Member ID Peters Member ID Guarantor Name 04/20/2024 1 [facility] BLUE (MEDICARE REPLACEMENT PPO) [id number] Sixto Johnson [id number] Sixto Johnson Notes Date Note Type Note Provider Name a fl Address Organization Details Recorded Time 04/20/2024 text/html relates that he has been having odd headaches with assoc dizziness and feeling fuzzy afterwards for a couple weeks states these headaches are rare had one last month and doesnt remember the time prior . states the headache is disorienting and dizzy Sina Robertson, DO [address] [facility], [place], [address], [facility] 04/20/2024 13:50:46
[2024-04-22 13:42] LABS: MANUAL DIFF FLAG NO
[2024-04-22 14:01] LABS: Basophils Percent Auto 0.9 % (0-2); Eosinophils Absolute Auto 0.1 X10*3/uL (0.0-0.4); Eosinophils Percent Auto 3.2 % (0-4); Hematocrit 38.8 % (42.0-52.0); Hemoglobin 12.3 g/dl (14.0-18.0); Lymphocytes Absolute Auto 1.2 X10*3/uL (1.2-4.9); Lymphocytes Percent Auto 34.4 % (20-40); Mean Corpuscular HGB Conc 31.7 g/dl (31.0-36.0); Mean Corpuscular Hemoglobin 27.8 pg (27.0-33.0); Mean Corpuscular Volume 87.6 fL (80.0-98.0); Mean Platelet Volume 9.9 fL (9.4-12.4); Monocytes Absolute Auto 0.5 X10*3/uL (0.1-1.2); Monocytes Percent Auto 13.6 % (2-11); Neutrophils Absolute Auto 1.7 x10*3/uL (2.0-8.3); Neutrophils Percent Auto 47.9 % (45-73); Platelet Count 309 X10*3/uL (160-400); Red Blood Count 4.43 X10*6/uL (4.60-5.80); Red Cell Distribution Width 16.3 % (11.0-16.0); White Blood Count 3.5 X10*3/uL (4.8-10.8)
[2024-04-22 14:39] LABS: Alanine Aminotransferase 26 U/L (0-40); Albumin Level 4.1 g/dL (3.5-5.0); Alkaline Phosphatase 84 U/L (39-117); Anion Gap 10 (12-20); Aspartate Amino Transferase 29 U/L (5-37); Bilirubin Total 0.5 mg/dL (0.0-1.0); Blood Urea Nitrogen 16 mg/dL (9-16); Calcium 8.7 mg/dL (8.4-10.2); Carbon Dioxide 26 mmol/L (22-29); Chloride 109 mmol/L (96-108); Cholesterol 205 mg/dL (<200); Estimated Glomerular Filt Rate > 60; Glucose Random 81 mg/dL (60-115); HDL Cholesterol 43 mg/dL (>40); LDL Cholesterol Calculated 144 mg/dL (<100); Potassium 3.8 mmol/L (3.3-5.1); Sodium 141 mmol/L (135-145); Total Protein 7.4 g/dL (6.5-8.0); Triglycerides 93 mg/dL (<150)
[2024-04-22 14:47] LABS: Ferritin 15 ng/mL (20-250)
[2024-04-22 14:50] LABS: Vitamin B12 603 pg/mL (200-900)
[2024-04-22 14:57] LABS: Prostate Specific Antigen 3.17 ng/mL (<0.05-4.0)
== END 2024-04-22 07:49 | disposition home or self-care (01) ==
LOC: HO.MANLDS 07:48
PROVIDERS: Visit Provider Internal Medicine
DX: Z12.5 Encounter for screening for malignant neoplasm of prostate (principal); D64.9 Anemia, unspecified; I10 Essential (primary) hypertension
CPT/HCPCS: 36415; 80053; 80061; 82607; 82728; 84153; 85025

== ENCOUNTER 2024-06-18 07:56 | Outpatient (REF) | payer MEDICARE, SELFPAY ==
--- NOTE | ~2024-06-18 | CT_ITS ---
EXAMINATION: CT HEAD WITHOUT CONTRAST CLINICAL INFORMATION: POST TRAUMATIC HEADACHES, COMPARISON: None available. TECHNIQUE: Contiguous axial imaging was performed from the skull base to vertex without intravenous administration of contrast. This CT examination was performed using dose optimization techniques as appropriate, variously including the following: *Automated exposure control *Adjustment of mA and/or kV according to patient size (this includes techniques or standardized protocols for targeted exams where dose is matched to indication/reason for exam; i.e. extremities or head) *Use of iterative reconstruction technique DLP: 761 mGy-cm FINDINGS: Bony calvarium is intact. Skull base is intact. No acute intracranial hemorrhage, mass effect, midline shift, hydrocephalus or herniation. Corcoran-white matter differentiation is normal. Prominence of the extra-axial CSF spaces cerebral sulci involving mostly the bifrontal bitemporal regions. 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 Calcified plaques in the cavernous supracavernous segments both ICAs and V4 segments vertebral arteries. Sellar/sellar region demonstrated no gross masses. Craniocervical junction is intact and normal. Mucosal thickening, ethmoid air cells and right frontal ethmoid recess and to a lesser extent sphenoid sinus. No air-fluid levels. Tympanic cavities and mastoid cells are aerated. Pneumatized petrous apices, congenital variant. CT/CT head/brain wo IV con IMPRESSION: No acute intracranial hemorrhage. Mild global atrophy. Consider small vessel occlusive disease. Atherosclerosis disease, intracranial. Electronically signed by: Trevon Nichols MD 06/18/2024 09:05 AM EDT
--- OUTSIDE RECORDS SUMMARY | 2024-06-18 07:59 | XMS_ITS | Data Portability ---
Author Organization [facility] Home Service Address [address] [place] [address] Assessment Encounter Date Assessment Date Assessment LastModified by Organization Details LastModified Time 06/14/2021 06/14/2021 [id number] [place] [address] ([employer]) [facility] MODERATE MUST MEET 2 OUT OF 3 [...] COVERED Not available 06/14/2021 09:49:45 12/22/2021 12/22/2021 [address] [place] [address] ([employer]ER [employer]) [facility] MODERATE MUST MEET 2 OUT OF 3 [...] COVERED Not available 12/22/2021 09:48:26 07/27/2022 07/27/2022 [address] [place] [address] ([employer]) [facility] MODERATE MUST MEET 2 OUT OF [...] COVERED Not available 07/27/2022 12:44:29 01/25/2023 01/25/2023 [address] [place] [address] ([employer]ER [employer] PACKAGES) : MDM LOW MUST MEET 2 OF [...] Lab CMP, serum or plasma 2024 025 [facility] [place], [address], 12:24:29 PSA, serum or plasma 2024 025 [facility], [place], [address], 5 13:46:22 lipid panel, blood 2024 025 [facility], [place], [address], 5 12:24:29 CBC w/ auto diff 2024 025 [facility], [place], [address], 5 12:24:29 ferritin, serum or plasma 2024 025 [facility], [place], [address], 5 13:46:22 vitamin B12, serum 2024 025 [facility], [place], [address], 5 13:46:23 CMP, serum or plasma 2022 023 [facility], [place], [address], 3 11:46:39 PSA, serum or plasma 2022 023 [facility], [place], [address], 3 11:46:39 lipid panel, blood 2022 023 [facility], [place], [address], 3 11:46:[address] [facility], [place], [address], 3 11:46:39 Referral None recorded. Procedures None recorded. Surgeries None recorded. Imaging CT, head, w/o contrast 2024 025 [facility], [address] [place], [address], 08:13:09 Medication Orders albuterol sulfate HFA 90 mcg/actuat ion aerosol inhaler 2021 022 [id number], [address] [place] [address], [place], [id number], 09:52:02 Patient TargetsNo targets recorded. Patient Instructions Encounter Date Encounter Id Patient Instructions Last Modified By Organization Details Last Modified Time 06/14/2021 [id number] pulse oximetry* KEISHA Not available 06/14/2021 11:10:09 high blood pressure: care instructions Not available 06/14/2021 09:53:33 learning about high blood pressure Not available 06/14/2021 09:53:33 12/22/2021 [id number] high blood pressure: care instructions Not available 12/22/2021 09:51:27 learning about high blood pressure Not available 12/22/2021 09:51:27 07/27/2022 [id number] pulse oximetry* KEISHA Not available 07/27/2022 12:27:37 controlling your asthma: care instructions rtryba Not available 07/27/2022 12:14:59 learning about asthma rtryba Not available 07/27/2022 12:14:59 04/20/2024 [id number] learning about asthma Not available 04/20/2024 13:44:58 [...] pulse oxime try* Result 98 Not Available [facility] [address] [facility] [address], [place], [address], 07/24/2022 11:43:12 04/20/19 25 04/20/2024 pulse oxime try* Result 98 Not Available [facility] [address], [place], [address], 04/15/2024 14:01:35 Result Notes None recorded. 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 055377674 Active 2018 Not Available [facility] 13:58:29 Exercise- induced asthma 57485104 Active 2018 Not Available [facility] 13:58:29 Stress 79515398 Active 2019 Not Available [facility] 13:58:29 Family history of Hypertens ion 505929998 Active 2021 Sina Robertson, DO [address] [facility], [place], [address], [facility] - [facility] 2 09:42:38 Viral hepatitis C 23731724 Active 2017 Not Available [facility] 13:58:29 Type B viral hepatitis 90187203 Active 2017 Not Available [facility] 13:58:29 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 68028185 Active 2017 Not Available [facility] 13:58:29 History of tobacco use 396176320836 3 Active 2017 Not Available [facility] 13:58:29 Exposure to asbestos Active 2017 Not Available [facility] 13:58:29 Essential hypertens ion 06618585 Active 2017 Not Available [facility] 13:58:29 Anxiety 71693038 Active 2021 JEAN-PIERRE SAENZ [address] [place] [address], [address], [facility] 2 08:45:19 Asthma 963535434 Active 2022 Sina Robertson, DO [address] [place] [address], [address], [facility] 3 12:45:36 Impacted cerumen 15196742 Active 2022 Sina Robertson, DO [address] [place] [address], [address], [facility] 3 12:45:57 Impacted cerumen 52391064 Active 2022 Sina Robertson DO [address] [place] [address], [address], [facility] 3 12:46:03 Altered bowel function 31371505 Active 2022 Sina Robertson, DO [address] [place] [address], [address], [facility] Medicine 3 12:49:09 Anemia 499198472 Active 2022 Sina Robertson DO [address] [place] [address], [address], [facility] 3 16:32:02 Chronic post-trau matic headache 347099038 Active 2024 Sina Robertson DO [address] [place] [address], [address], [facility] 5 13:46:59 Problem Notes None recorded. Medical Equipment None Reported. Allergies Allergen ID Allergen Name Allergen Category Reaction Reaction Severity Criticality Documentation Date Start Date Code Code System Note Provider Name and Address Organization Details Recorded Time 588 pantopraz ole medicatio n Not available Not available Not available 05/29/2017 56288 [facility] 8 10:11:42 Medications Name Sig Start [...] Available Not Available citalopram 10 mg tablet Take 1 tablet by mouth once daily 2024 active Not Available Not Available Not Avai lable amlodipine 5 mg tablet Take 1 tablet every day by oral route. 11/05 completed Not Available Not Available Not Available tamsulosin 0.4 mg capsule Take 1 capsule every day by oral route for 30 days. 04/03 completed Not Available Not Available Not Available amlodipine 10 mg tablet TAKE 1 TABLET BY MOUTH ONCE DAILY 2024 active Not Available Not Available Not Avai lable albuterol sulfate HFA 90 mcg/actuati on aerosol [...] Updated DateTime 2 174.63 cm 29.2 kg/m2 57829.5 4 g 60 /min 98 % 98 % 140 mm[Hg] 76 mm[Hg] Sina CareyAnh Robertson, DO [address] [place], [address] [place] [address] Internal Medicine 2 09:29:33 Date Recorded Body height Body mass index (BMI) Body weight Heart rate Oxygen saturation Oxygen saturation in Arterial blood by Pulse oximetry Systolic blood pressure Diastolic blood pressure Provider Name and Address Organization Details Last Updated DateTime 2 174.63 cm 29.4 kg/m2 87316.2 1 g 64 /min 98 % 98 % 142 mm[Hg] 84 mm[Hg] Christine Carmendelores [facility] 2 09:28:55 Date Recorded Body height Body mass index (BMI) Body weight Heart rate Oxygen saturation Oxygen saturation in Arterial blood by Pulse oximetry Systolic blood pressure Diastolic blood pressure Provider Name and Address Organization Details Last Updated DateTime 3 177.8 cm 27.4 kg/m2 63943.1 4 g 98 /min 72 % 72 % 120 mm[Hg] 80 mm[Hg] Nini Gaviria [facility] 3 12:20:51 Date Recorded Body height Body mass index (BMI) Body weight Heart rate Oxygen saturation Oxygen saturation in Arterial blood by Pulse oximetry Systolic blood pressure Diastolic blood pressure Provider Name and Address Organization Details Last Updated DateTime 5 177.8 cm 29.7 kg/m2 29168.6 2 g 62 /min 98 % 98 % 138 mm[Hg] 80 mm[Hg] Rodolfo Freeman [facility] 5 13:29:18 Social History Question Answer Notes LastModified by Organizat ion Details LastModified Time Tobacco Smoking Status Former Smoker 35 years Not Available [facility] 01/12/2020 03:36:24 What Is Your Level Of Alcohol Consumption? Occasional [id number] Information not available 01/12/2020 Are You Blind Or Do You Have Difficulty Seeing? No [id number] Information not available 01/12/2020 What Is Your Level Of Caffeine Consumption? Moderate [id number] Information not available 01/12/2020 How Much Tobacco Do You Chew? None [id number] Information not available 01/12/2020 Are You Currently Employed? No [id number] Information not available 01/12/2020 Are You Deaf Or Do You Have Serious Difficulty Hearing? No [id number] Information not available 01/12/2020 What Type Of Diet Are You Following? VEGETARIAN [id number] Information not available 01/12/2020 What Was The Date Of Your Most Recent Tobacco Screening? 07/27/2022 [email or web address] Information not available 01/25/2023 Do You Or Have You Ever Used Any Other Forms Of Tobacco Or Nicotine? No [id number] Information not available 01/25/2023 Sex: Unknown Functional Status Question Answer Note LastModified by Organization D etails LastModified Time Are you able to care for yourself? Yes [id number] Information n ot available 01/12/2020 Mental Status [...] 30 mcg/0.3 mL dose 06/03/19 21 completed NAVIN [facility] 07/27/2022 12:09:41 Influenza, split virus, quadrivalent, preservative 12/14/19 21 completed Liliam Gencarelle null, [facility] 07/27/2022 12:09:40 COVID-19, mRNA, LNP-S, PF, 100 mcg/0.5mL dose or 50 mcg/0.25mL dose 01/04/20 21 completed Liliam Gencarelle null, [facility] 07/27/2022 12:09:41 COVID-19, mRNA, LNP-S, PF, 100 mcg/0.5mL dose or 50 mcg/0.25mL dose 07/06/19 22 completed Liliam Gencarelle null, [facility] 07/27/2022 12:09:41 Influenza, high-dose, quadrivalent, PF 12/17/19 22 completed Liliam Gencarelle [facility] 07/27/2022 12:09:40 COVID-19, mRNA, LNP-S, PF, 30 mcg/0.3 mL dose 12/17/19 22 completed Liliam Gencarelle [facility] 07/27/2022 12:09:41 influenza, unspecified formulation 12/04/19 23 completed Rashaad Robertson [facility] 12/03/2022 10:30:22 Influenza, [place] 11/17/19 24 completed Sina Robertson, [address], [address], [facility] Internal [facility] 11/17/2023 16:50:48 SARS-COV-2 (COVID-19) vaccine, UNSPECIFIED 11/17/19 24 completed Sina Robertson, DO [address] [place] [address], [address], [facility] 11/17/2023 16:51:49 Influenza, split virus, quadrivalent, preservative 12/24/19 18 completed Liliam Gencarelle [facility] 07/27/2022 12:09:40 Tdap 09/26/19 19 completed Chaya Mcclellan [facility] 09/26/2018 08:18:28 Pneumococcal conjugate PCV 13 09/26/19 19 completed Liliam Gencarelle null, [facility] 07/27/2022 12:09:41 Influenza, split virus, quadrivalent, preservative 11/29/19 19 completed Liliam Gencarelle null, [facility] 07/27/2022 12:09:40 pneumococcal polysaccharide PPV23 10/15/19 20 completed Liliam Gencarelle null, [facility] 07/27/2022 12:09:41 zoster recombinant 10/15/19 20 completed Liliam Gencarelle null, [facility] 07/27/2022 12:09:40 Influenza, split virus, quadrivalent, preservative 12/21/19 20 completed Liliam Gencarelle null, [facility] 07/27/2022 12:09:40 zoster, unspecified formulation 12/21/19 20 completed Liliam Gencarelle null, [facility] 07/27/2022 12:09:40 COVID-19, mRNA, LNP-S, PF, 100 mcg/0.5mL dose or 50 mcg/0.25mL dose 05/05/19 21 completed Liliam Gencarelle null, [facility] 07/27/2022 12:09:41 Past Encounters Encounter ID Performer Location Encounter Start Date Encounter Closed Date Diagnosis/Indication Diagnosis SNOMED-CT Code Diagnosis ICD10 Code Diagnosis Note [id number] Sina Robertson DO [facility] [address] [facility], [place] [address] 09/23/2017 15:25:09 09/23/2017 16:37:32 Essential hypertension 58865354 I10 doing well great bp still biking thinking on retiring soon Degenerati on of thoracic intervertebral disc 72300460 M51.34 back is stable for most part but with any lifting has signif discomfort can anticipate it [id number] Nadege Matthew NP, S [facility] [address] [facility],[place] [address] 11/05/2017 15:54:28 11/06/2017 08:56:21 Thyroid nodule 557015180 E04.1 Fatigue 49381961 R53.83 Essential hypertension 39142429 I10 stable [id number] Sina Castle Yasmanyjorge alberto [facility] [address] [facility] [address],[place] [address] 03/26/2018 09:17:32 03/26/2018 09:59:55 Essential hypertension 25619257 I10 doing well bp sl elevated but great at home 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 snowboardi ng but this is healing Generalize d skin eruption caused by drug and medicament 716950647 L27.0 prob secondary to new amlodipine he will stop this and we will give him pred taper [id number] Sina CareyAnh Ailyn [facility] [address] [facility] [address],[place] [address] 05/05/2018 12:07:02 05/05/2018 12:33:58 Generalized skin eruption caused by drug and medicament 401105165 L27.0 marked improvemen t and all but resolved will see what happens off the pred in meantime molly keep him off the bp med (amlodipin e) and will see how his bp stays Essential hypertension 91377266 I10 as above cont to hold amlodipine and pt will check his bp multiple times during week will rechk in 1-2 mo [id number] Nadege Matthew NP, S [facility] [address] [facility] [address],[place] [address] 05/19/2018 15:38:43 05/20/2018 08:25:38 Pruritic rash 83804852 L28.2 [id number] Sina Robertson [facility] [address] [facility] [address],[place] [address] 06/04/2018 13:31:26 06/04/2018 15:53:46 Essential hypertension 33098000 I10 as above cont to hold amlodipine and pt will check his bp multiple times during week will rechk in 1-2 mo Pruritic rash 79224607 L 28.2 diffuse and only partly responsive to pred present since february and not improving see photos included Exercise-i nduced asthma 15321590 J45.990 has noticed onset agian this [id number] Sina Robertson [facility] [address] [facility] [address] [facility] [place] [address] 09/24/2018 08:49:10 09/24/2018 13:39:41 Essential hypertension 14272263 I10 bp has been stable and is doing well denies any issues with med Exercise-i nduced asthma 72692286 J45.990 has been more stable since the spring not req to use inhaler Benign pro static hyperplasia 750793507 N40.1 [id number] Sina Robertson [facility] [address] [facility],[place] [address] 04/03/2019 14:48:31 04/03/2019 15:16:20 Essential hypertension 08722494 I10 bp has been stable and is doing well denies any issues with med Stress 42496118 Z73.3 anxiety is high and this contribute s to him feeling well [id number] Sina Robertson DO [facility] [address] [facility],[place] [address] 05/08/2019 14:38:23 05/08/2019 15:12:34 Essential hypertension 15461807 I10 bp has been stable and is doing well denies any issues with med Active or passive immunization 191108432 Z23 Exercise-i nduced asthma 97122007 J45.990 has been more stable since the spring not req to use inhaler [id number] Sina Robertson [facility] [address] [facility] [address],[place] [address] 11/11/2019 13:27:26 11/11/2019 15:28:24 Essential hypertension 96307598 I10 bp has been stable and is doing well denies any issues with med feeling well and we will cont to use this same regimen Exercise-i nduced asthma 67844675 J45.990 has been more stable since the spring not req to use inhaler Degenerati on of thoracic intervertebral disc 53587567 M51.34 back is stable for most part but with any lifting has signif discomfort can anticipate it Drug of abuse screen 897 88624 Z02.83 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 [id number] Sina Robertson [facility] [address] [facility], [place] [address] 05/11/2020 09:09:52 05/11/2020 10:41:52 Essential hypertension 74336605 I10 bp has been stable and is doing well denies any issues with med feeling well and we will cont to use this same regimen Exercise-i nduced asthma 16897559 J45.990 has been more stable since the spring not req to use inhaler Exposure to asbestos 699 758315 Z77.090 here for chk will have him get another cxr [id number] Sina Robertson [facility] [address] [facility], [place] [address] 09/30/2020 14:46:45 09/30/2020 15:35:20 Essential hypertension 65764317 I10 bp has been stable and is doing well denies any issues with med feeling well and we will cont to use this same regimen Stress 03482976 Z73.3 anxiety is high and this contribute s to him feeling well we will stop the citalopram and try duloxetine [id number] Sina Robertson [facility] [address] [facility], [place] [address] 06/14/2021 09:21:46 06/14/2021 11:15:12 Essential hypertension 94242821 I10 bp has been stable and is [...] change to alternativ e Exercise-i nduced asthma 52009685 J45.990 has been more stable since the spring not req to use inhaler Stress 73908557 Z73.3 doing ok we will cont the citalopram [id number] Sina Robertson [facility] [address] [facility] [address] 12/22/2021 09:23:31 12/22/2021 11:18:29 Essential hypertension 75212825 I10 bp has been stable and is doing well denies any issues with med feeling well and we will cont to use this same regimen he is having dry mouth so he will hold the amlodipine for several days and see if this is the culprit and if so will call me on saturday we will consider change to alternativ e Stress 96119223 Z73.3 doing ok we will cont the citalopram Degenerati on of thoracic intervertebral disc 80328500 M51.34 back is stable for most part but with any lifting has signif discomfort can anticipate it Exercise-i nduced asthma 85137023 J45.990 has been more stable since the spring not req to use inhaler [id number] Sina Castle Ailyn [facility] [address] [facility] [place] 7 07/27/2022 12:09:32 07/27/2022 13:59:33 Asthma 007042828 J45.909 relates he is rarely bothered by the asthma not using inhaler at all Essential hypertension 10426677 I10 and again: bp has been stable and is doing well denies any issues with med feeling well and we will cont to use this same regimen Impacted cerumen 1035836 6 H61.21 he will irrigate th ear and let me know not compldtely blocked so we will cont to follow if not improved he will need an audiogram Altered pedro wel function 21460900 R19.4 we will follow if it recurs pt will let us know [id number] Sina Castle Ailyn [facility] [address] [facility] [address], [address] [facility] [place] 7 01/25/2023 08:20:46 01/25/2023 14:26:08 Asthma 087331397 J45.909 relates he is rarely bothered by the asthma not using inhaler at all Essential hypertension 95743954 I10 and again: bp has been stable and is doing well denies any issues with med feeling well and we will cont to use this same regimen Anemia 227189951 D64.9 [id number] DO Nahomi Gomez [facility] [address] [facility] [address],[place] [address] 04/20/2024 13:19:04 04/20/2024 13:52:49 Asthma 396911856 J45.909 relates he is rarely bothered by the asthma not using inhaler at all Anxiety 63838389 F41.1 stable but maybe a panic attack Anemia 278026829 D64.9 will need cbc Essential hypertension 14638878 I10 and again: bp has been stable and is doing well denies any issues with med feeling well and we will cont to use this same regimen Chronic post-traumatic headache 486812153 G44.329 Health Concerns Section Related Observation LastModified by Organization Detai ls LastModified Time None Recorded Concern Status LastModified by Organization Details LastModified Time None Recorded Advance Directives Directive None Recorded Payers Encounter Date Sequence Insurance Name Policy Number Policy Peters Covered Member ID Peters Member ID Guarantor Name 06/14/2021 1 [facility]: MEDICARE PPO BLUE (MEDICARE REPLACEMENT PPO) [id number] Sixto A Cernak [id number] Sixto Cernak 12/22/2021 1 [facility]: MEDICARE PPO BLUE (MEDICARE REPLACEMENT PPO) [id number] Sixto A Cernak [id number] Sixto Cernak 07/27/2022 1 [facility] (MEDICARE REPLACEMENT PPO) [id number] Sixto A Cernak [id number] Sixto Cernak 01/25/2023 1 [facility]: [place] (MEDICARE REPLACEMENT PPO) [id number] Sixto A Cernak [id number] 90 Sixto Cernak 04/20/2024 1 [facility]: [place] BLUE (MEDICARE REPLACEMENT PPO) [id number] Sixto A Cernak [id number] Sixto Cernak Notes Date Note Type [...] not have any issue Sina Robertson DO [address] [place] [address], [phone], [facility] 06/14/2021 09:53:57 2 [...] nosobnot using inhaler Sina Robertson DO [address] [place], [address], [facility] 12/22/2021 09:52:25 3 text/htm l relates he is feeling wellstates that he has been having some decreased hearing in right ear over the last monthsalso had very light bm several months ago happened for about a week then has cleared Sina Robertson DO [address] [place], [address], [facility] 07/27/2022 12:50:10 3 text/htm l patient is evaluated via tele/video assessment per patient consent during current pandemicPatient is a _72_ year old {{male* female}} with a history of hypertension. Patient had been stable on medication until recently. Patient returns today for further evaluation. Patient denies lightheadedness or dizziness. doing wellfeels welldid get the rsv and flu Sina Robertson DO [address] [place] [address], [phone], [facility] 01/25/2023 11:40:08 3 text/htm l Care Management - HypertensionReported bypatient.Self Care:not under emotional stress Severity:symptoms are improving; does not interfere with daily activities Associated Symptoms:no dizziness; no lightheadedness; no chest pain; no shortness of breath; no palpitations; no edema; no calf muscle cramps; no blurred vision; no confusion; no headaches; no fatigue Sina Robertson DO [address] [place], [id number], [facility] 01/25/2023 11:40:08 5 text/htm l relates that he has been having odd headaches with assoc dizziness and feeling fuzzy afterwards for a couple weeks states these headaches are rare had one last month and doesnt remember the time prior . states the headache is disorienting and dizzy Sina Robertson DO [address] [place], [id number], [facility] 04/20/2024 13:50:46
== END 2024-06-18 07:57 | disposition home or self-care (01) ==
LOC: HO.CT 07:56
PROVIDERS: PCP Internal Medicine; Visit Provider Internal Medicine
DX: G44.329 Chronic post-traumatic headache, not intractable (principal)
CPT/HCPCS: 70450

== ENCOUNTER → 2024-06-18 07:57 | Outpatient (BNV) | payer MEDICARE, SELFPAY | PROVIDERS: PCP Internal Medicine; Visit Provider Radiology Diagnostic Radiology | DX: G44.309 Post-traumatic headache, unspecified, not intractable (principal); I67.2 Cerebral atherosclerosis | CPT/HCPCS: 70450 ==